=== PATIENT | female | born 1970 | race Caucasian/White ===

== ENCOUNTER → 2017-11-06 | Outpatient (REF) | payer OTHER ==
[2017-11-06 14:05] LABS: INFLUENZA A AMPLIFICATION NEGATIVE (NEGATIVE); INFLUENZA B AMPLIFICATION NEGATIVE (NEGATIVE)
== END ==
LOC: M LAB REF 12:56
DX: J11.1 Influenza due to unidentified influenza virus with other respiratory manifestations (principal)

== ENCOUNTER → 2018-06-12 | Outpatient (REF) | payer OTHER | LOC: M SFHCLERA 14:29 | DX: R53.81 Other malaise (principal) ==

== ENCOUNTER → 2018-11-02 | Outpatient (REF) | payer OTHER | LOC: M SFHCLERA 10:35 | PROVIDERS: ATTEND Nurse Practitioner Family | DX: R53.81 Other malaise (principal) ==

== ENCOUNTER → 2018-11-09 | Outpatient (CLI) | payer OTHER ==
--- NOTE | 2018-11-09 17:50 | REP ---
Clinical: Acute cough . Comparison: None . Technique: PA and lateral. Findings: The mediastinum and cardiac silhouette are normal. The lung corona are clear and without acute consolidation, effusion, or pneumothorax. The skeletal structures are intact and normal. Impression: 1. No acute cardiopulmonary process. Electronically Signed by William Zapata MD 11/09/2018 05:40 P
== END ==
LOC: M LRY 17:11
PROVIDERS: ATTEND Physician Assistant
DX: R05 Cough (principal)

== ENCOUNTER → 2019-09-07 | Outpatient (CLI) | payer OTHER ==
--- NOTE | 2019-09-07 19:16 | REP ---
Clinical: Pain radiating to the right lower extremity. Technique: Neutral and frog lateral views of the right hip. Findings: Mildly increased sclerosis to the acetabular roof with subtle joint space narrowing. No further acute arthritic changes are appreciated. No fracture or dislocation. Impression: Mild age-related degenerative changes. Electronically Signed by William Zapata MD 09/07/2019 07:07 P
== END ==
LOC: M RAD 18:23
PROVIDERS: ATTEND Physician Assistant Medical
DX: M25.551 Pain in right hip (principal)

== ENCOUNTER → 2021-05-11 | Outpatient (REF) | payer OTHER | LOC: M LAB REF 16:33 | PROVIDERS: ATTEND Physician Assistant | DX: N39.0 Urinary tract infection, site not specified (principal) ==

== ENCOUNTER → 2021-11-09 | Outpatient (CLI) | payer OTHER | LOC: M RAD 17:42 | PROVIDERS: ATTEND Family Medicine | DX: J30.2 Other seasonal allergic rhinitis (principal) ==

== ENCOUNTER → 2022-04-07 | Outpatient (CLI) | payer OTHER | LOC: M RAD 12:42 | PROVIDERS: ATTEND Nurse Practitioner Family | DX: J45.40 Moderate persistent asthma, uncomplicated (principal); R91.8 Other nonspecific abnormal finding of lung field ==

== ENCOUNTER → 2022-04-23 | Outpatient (CLI) | payer OTHER | LOC: M PLAIMG 13:26 | PROVIDERS: ATTEND Nurse Practitioner Family | DX: R91.8 Other nonspecific abnormal finding of lung field (principal); J45.40 Moderate persistent asthma, uncomplicated ==

== ENCOUNTER → 2022-12-25 | Outpatient (CLI) | payer OTHER | LOC: M SLEEP HO 09:40 | PROVIDERS: ATTEND Internal Medicine Cardiovascular Disease | DX: R06.83 Snoring (principal) ==

== ENCOUNTER → 2023-05-17 | Outpatient (REF) | payer OTHER | LOC: M LAB REF 17:56 | PROVIDERS: ATTEND Physician Assistant | DX: R30.0 Dysuria (principal) ==

== ENCOUNTER → 2024-04-23 | Outpatient (CLI) | payer OTHER | LOC: M WHC 13:29 | PROVIDERS: ATTEND Student in an Organized Health Care Education/Training Program | DX: Z12.31 Encounter for screening mammogram for malignant neoplasm of breast (principal) ==

== ENCOUNTER 2025-03-16 16:07 | Emergency (ER) | payer OTHER ==
[~2025-03-16] VITALS: Ht 157.5 cm; Wt 96.6 kg
[2025-03-16] MEDS ORDERED: CETI5TAB5 PO (16:19)
[2025-03-16] MEDS ORDERED: MONT5TAB7 PO (16:19)
[2025-03-16 17:27] LABS: KETONE, URINE AUTO RFX NEGATIVE (NEGATIVE); LEUKOCYTE ESTERASE UR AUTO RFX TRACE (NEGATIVE); MUCUS, URINE RFX SMALL (NEGATIVE); NITRITE, URINE AUTO RFX NEGATIVE (NEGATIVE); RBC, URINE AUTO RFX 22 /HPF (0-3); SQUAM EPITHELIAL CELL UR AURFX 7 /HPF (0-6); WBC, URINE AUTO RFX 13 /HPF (0-3)
[2025-03-16] MEDS: KETOROLAC 30 MG/ML 1 ML VIAL IV ONE (18:07)
[2025-03-16 18:17] LABS: BASO # 0.1 10^3/uL (0.0-0.2); BASO % 0.4 % (0.0-1.0); EOS # 0.1 10^3/uL (0.0-0.5); EOS % 0.4 % (0.0-3.0); LYMPH # 1.0 10^3/uL (1.5-5.0); LYMPH % 7.1 % (24.0-44.0); MONO # 0.5 10^3/uL (0.0-0.8); MONO % 3.6 % (2.0-8.0); NEUTROPHILS # 11.8 10^3/uL (1.5-8.5); NEUTROPHILS % 88.1 % (36.0-66.0); PLATELET COUNT, AUTOMATED 346 10^3/uL (150-450)
[2025-03-16 18:47] LABS: ALT/SGPT 25.0 U/L (7.0-40); AST/SGOT 22.0 U/L (<34); CALCIUM LEVEL 9.5 MG/DL (8.5-10.1); CARBON DIOXIDE LEVEL 26.0 MMOL/L (20-31); CHLORIDE LEVEL 105.0 MMOL/L (98-107); CREATININE FOR GFR 0.97 MG/DL (0.55-1.30); GLOMERULAR FILTRATION RATE 68.6 (>51); POTASSIUM SERUM 4.2 MMOL/L (3.5-5.1); SODIUM LEVEL 141.0 MMOL/L (136-145)
[2025-03-16] MEDS ORDERED: KETO-204 PO (19:36)
[2025-03-16] MEDS ORDERED: TAMS-18 PO (19:36)
[2025-03-16 19:44] VITALS: BP 138/85; TEMP 98.9; O2SAT 99
== END 2025-03-16 19:46 | disposition home or self-care (01) ==
LOC: M ED 16:07
DX: N20.0 Calculus of kidney (principal); F10.10 Alcohol abuse, uncomplicated; Z88.1 Allergy status to other antibiotic agents; Z88.8 Allergy status to other drugs, medicaments and biological substances; Z79.2 Long term (current) use of antibiotics; Z79.899 Other long term (current) drug therapy
CPT/HCPCS: 74176; 80048; 80076; 81001; 83690; 85025; 87086; 96374; 99284; J1885

== ENCOUNTER → 2025-04-21 | Outpatient (CLI) | payer OTHER ==
[~2025-04-21] MED LIST: CETI5TAB5 PO; KETO-204 PO; MONT5TAB7 PO; TAMS-18 PO
== END ==
LOC: M RAD 17:12
PROVIDERS: ATTEND Physician Assistant
DX: N20.1 Calculus of ureter (principal)